=== PATIENT | male | born 1965 | race Hispanic/Latino ===

== ENCOUNTER → 2018-04-03 | Day surgery (SDC) | payer BC ==
[~2018-04-03] VITALS: Ht 162.6 cm; Wt 77.1 kg
[~2018-04-03] MED LIST: BP MED; LISINOPRIL10 MG PO
[2018-04-03 07:21] VITALS: BP 123/75
== END | disposition home or self-care (01) | DRG 951 ==
LOC: ENDO 06:43
PROVIDERS: ATTEND Surgery
DX: Z12.11 Encounter for screening for malignant neoplasm of colon (principal); Z53.8 Procedure and treatment not carried out for other reasons